=== PATIENT | female | born 1980 | race Caucasian/White ===

== ENCOUNTER 2022-08-23 09:11 | Emergency (ER) | payer BC, OTHER ==
[~2022-08-23] VITALS: Ht 152.4 cm; Wt 61.2 kg
[2022-08-23 09:11] VITALS: BP_SYST 111
[~2022-08-23 09:11] MED LIST: PERCOCET
--- NOTE | 2022-08-23 09:20 | NUR ---
Patient triaged and placed in waiting room. VSS and patient appears in no acute distress at this time. Accompanied by SELF, awaiting available bed, and MD notified of need for MSE.
--- NOTE | 2022-08-23 09:25 | NUR ---
PT STATES THAT SHE IS APPROX 6 WEEKS 6 DAYS , , STATES LEFT LOWER BACK CRAMPING AND LEFT LOWER ABDOMINAL PAIN, INCREASING TODAY. PT STATES SMALL AMT OF VAGINAL BLEEDING AND INCREASING TODAY.
--- NOTE | 2022-08-23 09:34 | NUR ---
DR VALENZUELA OUT TO TRIAGE ROOM FOR EVALUATION
[2022-08-23 10:20] LABS: BASOPHILS % (AUTO) 0.4 % (0.0-2.0); EOSINOPHILS # (AUTO) 0.1 K/uL (0.0-0.4); HEMATOCRIT 37.6 % (36-48); HEMOGLOBIN 12.3 g/dL (12.0-16.0); LYMPHOCYTES # (AUTO) 1.8 K/uL (1.0-5.5); LYMPHOCYTES % (AUTO) 40.2 % (20.5-51.5); MEAN CORPUSCULAR HEMOGLOBIN 29 pg (27-31); MEAN CORPUSCULAR HGB CONC 33 % (32-36); MEAN CORPUSCULAR VOLUME 89 fL (79.0-98.0); MONOCYTES # (AUTO) 0.3 K/uL (0.0-1.0); MONOCYTES % (AUTO) 5.9 % (1.7-9.3); NEUTROPHILS # (AUTO) 2.4 K/uL (1.8-7.7); NEUTROPHILS % (AUTO) 51.5 % (40.0-70.0); PLATELET COUNT (AUTO) 247 K/uL (130-430); RED BLOOD CELL COUNT(AUTO) 4.23 MIL/uL (4.2-6.2); RED CELL DISTRIBUTION WIDTH 14.3 % (9.0-15.0); WHITE BLOOD COUNT (AUTO) 4.6 K/uL (4.8-10.8)
[2022-08-23 10:28] LABS: CALCIUM 9.3 mg/dL (8.4-11.0); CREATININE 0.61 mg/dL (0.55-1.30)
[2022-08-23 10:39] LABS: ALBUMIN 3.6 g/dL (3.4-4.8); TOTAL BILIRUBIN 0.4 mg/dL (0.0-1.0)
--- NOTE | 2022-08-23 10:40 | NUR ---
TAKEN TO RADIOLOGY VIA AMBULATORY.
--- NOTE | 2022-08-23 11:27 | NUR ---
RETURNED TO WAITING ROOM VIA AMBULATORY
--- NOTE | 2022-08-23 12:07 | NUR ---
DR VALENZUELA OUT TO TRIAGE ROOM TO SPEAK WITH PT
--- NOTE | 2022-08-23 12:16 | NUR ---
Patient given written and verbal discharge instructions and verbalizes understanding. ER MD discussed with patient the results and treatment provided. Patient in stable condition. ID arm band removed. Rx of NONE given. Patient educated on pain management and to follow up with PMD. Pain Scale 0/10. Opportunity for questions provided and answered. Medication side effect fact sheet provided.
== END 2022-08-23 12:16 | disposition home or self-care (01) ==
LOC: SED 09:11
DX: O26.851 Spotting complicating pregnancy, first trimester (principal); Z3A.01 Less than 8 weeks gestation of pregnancy; Z79.899 Other long term (current) drug therapy
CPT/HCPCS: 36415; 76830-TC; 76857; 80053; 84702; 85025; 86901; 99284